=== PATIENT | male | born 1930 | race Caucasian/White ===

== ENCOUNTER 2016-09-22 15:31 | Emergency (ER) | payer OTHER, BC ==
[~2016-09-22] VITALS: Ht 177.8 cm; Wt 87.2 kg
[~2016-09-22 15:31] MED LIST: AMOX TR-K CLV1 EAC4 PO; Aspirin E.C. PO; BIOTIN2500 MCG PO; CILOSTAZOL100 MG PO; CLINDAMYCIN HC300 MG PO; CRESTOR10 MG PO; CRESTOR20 MG PO; CRESTOR40 MG PO; CYANOCOBALAM1000 MCG PO; DAILY MULTIPLE1 EACH PO; DIOVAN40 MG PO; DULOXETINE HCL60 MG PO; ENDOCET 5-3251 EACH PO; FUROSEMIDE20 MG PO; Flaxseed Oil PO; GABAPENTIN300 MG PO; GABAPENTIN600 MG PO; GLUCOPHAGE500 MG PO; Glucophage PO; KEFLEX500 MG PO; Keflex PO; LEVAQUIN750 MG PO; LO-DOSE ASPIRIN81 M1 PO; METFORMIN HCL500 MG PO; PROTONIX40 MG PO; PROVENTIL HFA6.7 GM IH; PROZAC20 MG PO; Protonix PO; Proventil,Ventolin H IH; QVAR 80 MCG IN7.3 GM IH; SPIRIVA1 INHALATI IH; THERAGRAN1 TABLET PO; TIZANIDINE HCL2 M1 PO; VALIUM2 MG PO; VIBRAMYCIN100 MG PO; VITAMIN B-12250 MC2 PO; VITAMIN D31000 UNI2 PO
[2016-09-22 17:13] VITALS: BP 134/76
== END 2016-09-22 17:15 | disposition home or self-care (01) ==
LOC: EME → EDBD 15:31 → EME 17:15
PROC: 0HQKXZZ Repair Right Lower Leg Skin, External Approach (ICD-10-PCS; principal; 2016-09-22)
DX: S81.811A Laceration without foreign body, right lower leg, initial encounter (principal); W25.XXXA Contact with sharp glass, initial encounter; I10 Essential (primary) hypertension; J44.9 Chronic obstructive pulmonary disease, unspecified; E78.5 Hyperlipidemia, unspecified; E11.9 Type 2 diabetes mellitus without complications; Z79.84 Long term (current) use of oral hypoglycemic drugs; K21.9 Gastro-esophageal reflux disease without esophagitis; F32.9 Major depressive disorder, single episode, unspecified; Z85.46 Personal history of malignant neoplasm of prostate; Z87.891 Personal history of nicotine dependence
CPT/HCPCS: 99281; 99284

== ENCOUNTER 2016-11-22 15:51 | Inpatient (IN) | payer OTHER, BC ==
[~2016-11-22] VITALS: Ht 177.8 cm; Wt 91.4 kg
[2016-11-22 17:57] LABS: HEMATOCRIT 34.7 % (38.0-50.0); MCHC 32.6 G/DL (30.0-36.0); MCV 95.1 FL (86-99); MEAN PLAT.VOLUME 9.1 uM^3 (9.0-12.4); PLATELET COUNT 132 K/uL (156-360); RBC DIS.WIDTH-CV 14.2 % (11.8-14.6); RBC DIS.WIDTH-SD 49.4 % (39-53); RED BLOOD COUNT 3.65 M/uL (4.00-5.50); WHITE BLOOD COUNT 14.9 K/uL (4.1-10.2)
[2016-11-22 18:06] LABS: CHLORIDE 100 mEq/L (99-109); POTASSIUM 4.8 mEq/L (3.7-5.4); SODIUM 136 mEq/L (136-147)
[2016-11-22 18:08] LABS: GLUCOSE 192 mg/dL (70-99)
[2016-11-22 18:10] LABS: ANION GAP 11 MEQ/L (2-14); TOTAL BILIRUBIN 0.7 mg/dL (0.0-1.0)
[2016-11-22 18:12] LABS: ALKALINE PHOSPHATASE 48 IU/L (3-129); GFR ESTIMATE (CALCULATED) 38 mL/min/
[2016-11-22 18:13] LABS: UREA NITROGEN (BUN) 32 mg/dL (9-23)
[2016-11-22 18:15] LABS: CREATINE KINASE 402 IU/L (1-294)
[2016-11-22 18:18] LABS: TROP-I INTERPRETATION NEGATIVE; TROPONIN-I 0.03 ng/mL (0.0-0.30)
[2016-11-22 22:15] VITALS: BP 98/57
[2016-11-22 23:29] LABS: ADD MIUA? YES; BILIRUBIN NEGATIVE; BLOOD SMALL; COLOR YELLOW ((YELLOW)); GLUCOSE (STRIP) NEGATIVE; KETONES NEGATIVE; LEUKOCYTES NEGATIVE; NITRITE NEGATIVE; PROTEIN (STRIP) NEGATIVE; SPECIFIC GRAVITY 1.013 (1.000-1.030)
[2016-11-22 23:45] LABS: BACTERIA NONE SEEN /HPF; EPITHELIAL CELLS NONE SEEN /HPF; MUCUS TRACE /LPF; RED BLOOD CELLS TNTC /HPF (0-5); UCUL ADDED? YES; WHITE BLOOD CELLS 0-5 /HPF (0-5)
[2016-11-22 23:56] VITALS: BP 101/57
[2016-11-23 00:20] LABS: POINT-OF-CARE METER ID UU13113717
[2016-11-23 01:30] LABS: TROP-I INTERPRETATION NEGATIVE; TROPONIN-I 0.02 ng/mL (0.0-0.30)
[2016-11-23 03:11] LABS: POINT-OF-CARE METER ID UU13113717
[2016-11-23 03:46] VITALS: BP 102/59
[2016-11-23 06:33] LABS: HEMATOCRIT 31.2 % (38.0-50.0); MCH 30.5 PG (29.0-34.0); MCHC 31.7 G/DL (30.0-36.0); MEAN PLAT.VOLUME 10.1 uM^3 (9.0-12.4); PLATELET COUNT 116 K/uL (156-360); RBC DIS.WIDTH-CV 14.5 % (11.8-14.6); RED BLOOD COUNT 3.25 M/uL (4.00-5.50); WHITE BLOOD COUNT 10.3 K/uL (4.1-10.2)
[2016-11-23 06:53] LABS: ALKALINE PHOSPHATASE 39 IU/L (3-129); ANION GAP 7 MEQ/L (2-14); CHLORIDE 108 MEQ/L (99-109); CREATINE KINASE 205 IU/L (1-294); GFR ESTIMATE (CALCULATED) 47 mL/min/; GLUCOSE 127 mg/dL (70-99); POTASSIUM 4.3 MEQ/L (3.7-5.4); SAMPLE HEMOLYSIS CHECK 0; SAMPLE ICTERIC CHECK 0; SAMPLE LIPEMIA CHECK 0; SODIUM 140 MEQ/L (136-147); TOTAL BILIRUBIN 0.5 MG/DL (0.0-1.0); TOTAL CK 205 IU/L (1-294); UREA NITROGEN (BUN) 26 mg/dL (9-23)
[2016-11-23 06:58] LABS: TROP-I INTERPRETATION NEGATIVE; TROPONIN-I 0.03 ng/mL (0.0-0.30)
[2016-11-23 07:20] LABS: EOSINOPHIL (%) 0.7 % (0-5); EOSINOPHIL COUNT 0.1 K/uL (0-0.3); IMMATURE GRANULOCYTE (%) 0.4 % (0.0-0.7); INSTRUMENT ABS NEUTROPHIL CT 8.2 K/uL; LYMPHOCYTE COUNT 1.3 K/uL (1.0-2.8); MONOCYTE (%) 6.5 % (3-12); MONOCYTE COUNT 0.7 K/uL (0-0.8); NEUTROPHIL (%) 79.7 % (45-76); NEUTROPHIL COUNT 8.2 K/uL (1.8-6.4)
[2016-11-23 07:28] LABS: CK-MB 1.5 ng/mL (0.0-4.9)
[2016-11-23 08:39] VITALS: BP 124/71
[2016-11-23 11:40] VITALS: BP 147/67
[2016-11-23 12:29] LABS: POINT-OF-CARE METER ID UU13113717
[2016-11-23 15:59] VITALS: BP 120/59
[2016-11-23 19:27] VITALS: BP 120/67
[2016-11-24] VITALS (7 sets, daily range): BP systolic 122–147; BP diastolic 66–73
[2016-11-24 04:11] LABS: POINT-OF-CARE METER ID UU14174225
[2016-11-24 06:01] LABS: MCH 31.8 PG (29.0-34.0); MCHC 33.2 G/DL (30.0-36.0); MCV 95.7 FL (86-99); MEAN PLAT.VOLUME 10.5 uM^3 (9.0-12.4); PLATELET COUNT 124 K/uL (156-360); RBC DIS.WIDTH-CV 14.5 % (11.8-14.6); RBC DIS.WIDTH-SD 50.4 % (39-53); RED BLOOD COUNT 3.24 M/uL (4.00-5.50); WHITE BLOOD COUNT 9.5 K/uL (4.1-10.2)
[2016-11-24 06:27] LABS: ALKALINE PHOSPHATASE 53 IU/L (3-129); ANION GAP 9 MEQ/L (2-14); CHLORIDE 107 MEQ/L (99-109); GFR ESTIMATE (CALCULATED) 47 mL/min/; POTASSIUM 4.1 MEQ/L (3.7-5.4); SAMPLE HEMOLYSIS CHECK 0; SAMPLE ICTERIC CHECK 0; SAMPLE LIPEMIA CHECK 0; SODIUM 137 MEQ/L (136-147); TOTAL BILIRUBIN 0.5 MG/DL (0.0-1.0); UREA NITROGEN (BUN) 24 mg/dL (9-23)
[2016-11-24 06:35] LABS: GLUCOSE 201 mg/dL (70-99)
[2016-11-24 18:03] LABS: POINT-OF-CARE METER ID UU13113717
[2016-11-24 21:39] LABS: POINT-OF-CARE METER ID UU13113717
[2016-11-25 03:26] VITALS: BP 119/59
[2016-11-25 06:01] LABS: HEMATOCRIT 30.6 % (38.0-50.0); MCH 30.3 PG (29.0-34.0); MCHC 32.4 G/DL (30.0-36.0); MCV 93.6 FL (86-99); MEAN PLAT.VOLUME 9.9 uM^3 (9.0-12.4); PLATELET COUNT 132 K/uL (156-360); RBC DIS.WIDTH-SD 47.5 % (39-53); RED BLOOD COUNT 3.27 M/uL (4.00-5.50); WHITE BLOOD COUNT 7.3 K/uL (4.1-10.2)
[2016-11-25 06:40] LABS: ALKALINE PHOSPHATASE 62 IU/L (3-129); ANION GAP 9 MEQ/L (2-14); CHLORIDE 105 MEQ/L (99-109); GFR ESTIMATE (CALCULATED) 56 mL/min/; GLUCOSE 158 mg/dL (70-99); POTASSIUM 4.4 MEQ/L (3.7-5.4); SAMPLE HEMOLYSIS CHECK 0; SAMPLE ICTERIC CHECK 0; SAMPLE LIPEMIA CHECK 0; SODIUM 138 MEQ/L (136-147); UREA NITROGEN (BUN) 19 mg/dL (9-23)
[2016-11-25 07:30] VITALS: BP 120/58
[2016-11-25 07:36] LABS: POINT-OF-CARE METER ID UU14188625
[2016-11-25] MEDS ORDERED: CEFTIN500 MG PO (08:40)
== END 2016-11-25 11:10 | disposition home health service (06) | DRG 872 ==
LOC: EME 15:51 → 5SOUTH 20:55 → EDOF 20:55 → ENRESERV 20:59 → 5SOUTH 22:09 → ENPENDDIS 11-25 → 5SOUTH 11-25 11:10
PROVIDERS: Internal Medicine; Physician Assistant
DX: A41.9 Sepsis, unspecified organism (principal); N17.9 Acute kidney failure, unspecified; M62.82 Rhabdomyolysis; E11.40 Type 2 diabetes mellitus with diabetic neuropathy, unspecified; E11.621 Type 2 diabetes mellitus with foot ulcer; L97.519 Non-pressure chronic ulcer of other part of right foot with unspecified severity; E11.628 Type 2 diabetes mellitus with other skin complications; L03.115 Cellulitis of right lower limb; I95.1 Orthostatic hypotension; I25.10 Atherosclerotic heart disease of native coronary artery without angina pectoris; Z95.5 Presence of coronary angioplasty implant and graft; K21.9 Gastro-esophageal reflux disease without esophagitis; J44.9 Chronic obstructive pulmonary disease, unspecified; E78.00 Pure hypercholesterolemia, unspecified; Z87.891 Personal history of nicotine dependence; Z82.49 Family history of ischemic heart disease and other diseases of the circulatory system; E86.0 Dehydration; Z85.46 Personal history of malignant neoplasm of prostate; T67.5XXA Heat exhaustion, unspecified, initial encounter; S09.90XA Unspecified injury of head, initial encounter; W06.XXXA Fall from bed, initial encounter; Y92.013 Bedroom of single-family (private) house as the place of occurrence of the external cause; Z82.3 Family history of stroke; E78.5 Hyperlipidemia, unspecified; Z79.84 Long term (current) use of oral hypoglycemic drugs; R55 Syncope and collapse
CPT/HCPCS: 70450; 71020; 73630; 80053; 81003; 82550; 82553; 82948; 83605; 84484; 85025; 85027; 87040; 87070; 87075; 87086; 87205; 93005; 93880; 93971; 94640; 94640 76; 99281; 99285; J0692; J0696; J1644; J1815; J3370; J7030; J7050

== ENCOUNTER 2016-12-10 14:41 | Inpatient (IN) | payer OTHER, BC ==
[~2016-12-10] VITALS: Ht 152.4 cm; Wt 90.3 kg
[~2016-12-10 14:41] MED LIST changes: +CEFTIN500 MG PO
[2016-12-10 15:47] LABS: EOSINOPHIL (%) 0.1 % (0-5); HEMATOCRIT 32.7 % (38.0-50.0); IMMATURE GRANULOCYTE (%) 0.6 % (0.0-0.7); IMMATURE GRANULOCYTE COUNT 0.1 K/uL; INSTRUMENT ABS NEUTROPHIL CT 7.7 K/uL; LYMPHOCYTE COUNT 1.3 K/uL (1.0-2.8); MCH 30.5 PG (29.0-34.0); MCHC 32.4 G/DL (30.0-36.0); MONOCYTE (%) 14.9 % (3-12); MONOCYTE COUNT 1.6 K/uL (0-0.8); NEUTROPHIL (%) 71.9 % (45-76); NEUTROPHIL COUNT 7.7 K/uL (1.8-6.4); RBC DIS.WIDTH-CV 14.2 % (11.8-14.6); RBC DIS.WIDTH-SD 48.6 % (39-53); RED BLOOD COUNT 3.48 M/uL (4.00-5.50); WHITE BLOOD COUNT 10.7 K/uL (4.1-10.2)
[2016-12-10 15:48] LABS: PLATELET COUNT 167 K/uL (156-360)
[2016-12-10 15:57] LABS: CHLORIDE 100 mEq/L (99-109); POTASSIUM 4.5 mEq/L (3.7-5.4); SODIUM 133 mEq/L (136-147)
[2016-12-10 15:59] LABS: GLUCOSE 242 mg/dL (70-99)
[2016-12-10 16:00] LABS: ANION GAP 9 MEQ/L (2-14)
[2016-12-10 16:03] LABS: GFR ESTIMATE (CALCULATED) 47 mL/min/; UREA NITROGEN (BUN) 23 mg/dL (9-23)
[2016-12-10 16:05] LABS: URIC ACID 4.3 mg/dL (3.1-9.2)
[2016-12-10 16:53] LABS: POINT-OF-CARE METER ID UU13113702; POINT-OF-CARE USER ID NUTJNM
[2016-12-10] MEDS ORDERED: SERTRALINE HCL50 MG PO (17:24)
[2016-12-10] MEDS ORDERED: GABAPENTIN300 MG PO ×2 (17:24)
[2016-12-10] MEDS ORDERED: FISH OIL 1,0001 EAC7 PO (17:25)
[2016-12-10 19:55] VITALS: BP 140/81
[2016-12-10 22:20] LABS: POINT-OF-CARE METER ID UU14117124
[2016-12-10 23:58] VITALS: BP 124/67
[2016-12-11 00:50] LABS: POINT-OF-CARE METER ID UU14117124
[2016-12-11 03:45] VITALS: BP 106/57
[2016-12-11 06:04] LABS: HEMATOCRIT 31.8 % (38.0-50.0); MCH 30.7 PG (29.0-34.0); MCHC 32.7 G/DL (30.0-36.0); MCV 93.8 FL (86-99); MEAN PLAT.VOLUME 9.7 uM^3 (9.0-12.4); PLATELET COUNT 177 K/uL (156-360); RBC DIS.WIDTH-CV 14.3 % (11.8-14.6); RED BLOOD COUNT 3.39 M/uL (4.00-5.50); WHITE BLOOD COUNT 9.3 K/uL (4.1-10.2)
[2016-12-11 06:32] LABS: ALKALINE PHOSPHATASE 54 IU/L (3-129); ANION GAP 8 MEQ/L (2-14); CHLORIDE 104 MEQ/L (99-109); GFR ESTIMATE (CALCULATED) 56 mL/min/; GLUCOSE 153 mg/dL (70-99); POTASSIUM 4.5 MEQ/L (3.7-5.4); SAMPLE HEMOLYSIS CHECK 0; SAMPLE ICTERIC CHECK 0; SAMPLE LIPEMIA CHECK 0; SODIUM 137 MEQ/L (136-147); UREA NITROGEN (BUN) 21 mg/dL (9-23)
[2016-12-11 06:41] LABS: TOTAL BILIRUBIN 0.7 MG/DL (0.0-1.0)
[2016-12-11 07:18] VITALS: BP 113/69
[2016-12-11 11:08] LABS: POINT-OF-CARE METER ID UU14188577
[2016-12-11 15:10] VITALS: BP 101/55
[2016-12-11 15:59] LABS: POINT-OF-CARE METER ID UU14117124
[2016-12-11 21:35] LABS: POINT-OF-CARE METER ID UU14188577
[2016-12-11 23:09] VITALS: BP 100/65
[2016-12-12 04:12] VITALS: BP 94/53
[2016-12-12 06:35] LABS: POINT-OF-CARE METER ID UU14208753
[2016-12-12 06:44] LABS: HEMATOCRIT 29.9 % (38.0-50.0); MCH 30.9 PG (29.0-34.0); MCHC 32.8 G/DL (30.0-36.0); MCV 94.3 FL (86-99); PLATELET COUNT 166 K/uL (156-360); RBC DIS.WIDTH-CV 14.1 % (11.8-14.6); RBC DIS.WIDTH-SD 48.9 % (39-53); RED BLOOD COUNT 3.17 M/uL (4.00-5.50); WHITE BLOOD COUNT 8.7 K/uL (4.1-10.2)
[2016-12-12 07:11] LABS: ALKALINE PHOSPHATASE 61 IU/L (3-129); ANION GAP 8 MEQ/L (2-14); CHLORIDE 101 MEQ/L (99-109); GFR ESTIMATE (CALCULATED) 44 mL/min/; GLUCOSE 167 mg/dL (70-99); POTASSIUM 4.5 MEQ/L (3.7-5.4); SAMPLE HEMOLYSIS CHECK 0; SAMPLE ICTERIC CHECK 0; SAMPLE LIPEMIA CHECK 0; SODIUM 135 MEQ/L (136-147); TOTAL BILIRUBIN 0.7 MG/DL (0.0-1.0); UREA NITROGEN (BUN) 22 mg/dL (9-23)
[2016-12-12 08:02] VITALS: BP 106/60
[2016-12-12 12:31] LABS: ADD MIUA? YES; BILIRUBIN NEGATIVE; BLOOD SMALL; COLOR YELLOW ((YELLOW)); GLUCOSE (STRIP) NEGATIVE; KETONES NEGATIVE; LEUKOCYTES NEGATIVE; NITRITE NEGATIVE; PROTEIN (STRIP) 30; SPECIFIC GRAVITY 1.019 (1.000-1.030)
[2016-12-12 12:44] LABS: BACTERIA NONE SEEN /HPF; EPITHELIAL CELLS NONE SEEN /HPF; MUCUS NONE SEEN /LPF; WHITE BLOOD CELLS 0-5 /HPF (0-5)
[2016-12-12 16:26] VITALS: BP 106/59
[2016-12-12 18:33] LABS: POINT-OF-CARE METER ID UU13113675; POINT-OF-CARE USER ID ADMKMM76
[2016-12-12 19:53] VITALS: BP 105/66
[2016-12-12 23:26] VITALS: BP 131/78
[2016-12-13 04:28] VITALS: BP 100/61
[2016-12-13 06:17] LABS: POINT-OF-CARE METER ID UU14117124
[2016-12-13 06:17] LABS: HEMATOCRIT 30.5 % (38.0-50.0); MCH 30.1 PG (29.0-34.0); MCHC 31.8 G/DL (30.0-36.0); MCV 94.7 FL (86-99); MEAN PLAT.VOLUME 10.2 uM^3 (9.0-12.4); PLATELET COUNT 153 K/uL (156-360); RBC DIS.WIDTH-CV 13.8 % (11.8-14.6); RBC DIS.WIDTH-SD 47.9 % (39-53); RED BLOOD COUNT 3.22 M/uL (4.00-5.50); WHITE BLOOD COUNT 7.5 K/uL (4.1-10.2)
[2016-12-13 07:12] LABS: ALKALINE PHOSPHATASE 60 IU/L (3-129); ANION GAP 9 MEQ/L (2-14); CHLORIDE 105 MEQ/L (99-109); GFR ESTIMATE (CALCULATED) 51 mL/min/; GLUCOSE 139 mg/dL (70-99); POTASSIUM 4.7 MEQ/L (3.7-5.4); SAMPLE HEMOLYSIS CHECK 1; SAMPLE ICTERIC CHECK 0; SAMPLE LIPEMIA CHECK 0; SODIUM 135 MEQ/L (136-147); TOTAL BILIRUBIN 0.8 MG/DL (0.0-1.0); UREA NITROGEN (BUN) 21 mg/dL (9-23)
[2016-12-13 07:40] VITALS: BP 94/62
[2016-12-13 11:37] VITALS: BP 109/63
[2016-12-13 11:56] LABS: POINT-OF-CARE METER ID UU14188577
[2016-12-13 16:11] VITALS: BP 98/64
[2016-12-13 16:16] LABS: POINT-OF-CARE METER ID UU14188577
[2016-12-13 18:18] LABS: ADD MIUA? YES; BILIRUBIN NEGATIVE; BLOOD SMALL; COLOR YELLOW ((YELLOW)); GLUCOSE (STRIP) NEGATIVE; KETONES NEGATIVE; LEUKOCYTES NEGATIVE; NITRITE NEGATIVE; PROTEIN (STRIP) NEGATIVE; SPECIFIC GRAVITY 1.015 (1.000-1.030)
[2016-12-13 18:22] LABS: BACTERIA NONE SEEN /HPF; EPITHELIAL CELLS NONE SEEN /HPF; MUCUS TRACE /LPF; RED BLOOD CELLS 0-5 /HPF (0-5); WHITE BLOOD CELLS NONE SEEN /HPF (0-5)
[2016-12-13 23:36] VITALS: BP 142/75
[2016-12-14 06:49] LABS: HEMATOCRIT 30.2 % (38.0-50.0); MCHC 31.8 G/DL (30.0-36.0); MCV 94.4 FL (86-99); MEAN PLAT.VOLUME 9.8 uM^3 (9.0-12.4); PLATELET COUNT 172 K/uL (156-360); RBC DIS.WIDTH-CV 13.8 % (11.8-14.6); RBC DIS.WIDTH-SD 47.8 % (39-53); WHITE BLOOD COUNT 8.5 K/uL (4.1-10.2)
[2016-12-14 07:43] VITALS: BP 141/76
[2016-12-14 07:50] LABS: ALKALINE PHOSPHATASE 81 IU/L (3-129); ANION GAP 8 MEQ/L (2-14); CHLORIDE 102 MEQ/L (99-109); GFR ESTIMATE (CALCULATED) 56 mL/min/; GLUCOSE 164 mg/dL (70-99); POTASSIUM 4.1 MEQ/L (3.7-5.4); SAMPLE HEMOLYSIS CHECK 0; SAMPLE ICTERIC CHECK 0; SAMPLE LIPEMIA CHECK 0; SODIUM 135 MEQ/L (136-147); TOTAL BILIRUBIN 0.7 MG/DL (0.0-1.0); UREA NITROGEN (BUN) 22 mg/dL (9-23)
[2016-12-14 11:12] LABS: POINT-OF-CARE METER ID UU14188577
[2016-12-14 15:51] VITALS: BP 133/65
[2016-12-14 16:44] LABS: POINT-OF-CARE METER ID UU14188577
[2016-12-14 21:48] LABS: POINT-OF-CARE METER ID UU14117124
[2016-12-14 23:57] VITALS: BP 138/68
[2016-12-15 06:39] LABS: POINT-OF-CARE METER ID UU14188577
[2016-12-15 07:11] LABS: ANION GAP 12 MEQ/L (2-14); C-REACTIVE PROTEIN 125.4 MG/L (0-10); CHLORIDE 102 MEQ/L (99-109); GFR ESTIMATE (CALCULATED) > 59 mL/min/; GLUCOSE 136 mg/dL (70-99); POTASSIUM 4.2 MEQ/L (3.7-5.4); SAMPLE HEMOLYSIS CHECK 0; SAMPLE ICTERIC CHECK 0; SAMPLE LIPEMIA CHECK 0; SODIUM 137 MEQ/L (136-147); TOTAL BILIRUBIN 0.7 MG/DL (0.0-1.0); UREA NITROGEN (BUN) 20 mg/dL (9-23)
[2016-12-15 07:14] LABS: ALKALINE PHOSPHATASE 104 IU/L (3-129)
[2016-12-15 07:57] VITALS: BP 140/63
[2016-12-15 12:08] LABS: POINT-OF-CARE METER ID UU14188577
[2016-12-15 16:41] LABS: POINT-OF-CARE METER ID UU14208753
[2016-12-15 17:12] VITALS: BP 117/65
[2016-12-15 22:12] LABS: POINT-OF-CARE METER ID UU14117124
[2016-12-15 23:35] VITALS: BP 137/71
[2016-12-16 06:52] LABS: POINT-OF-CARE METER ID UU14188577
[2016-12-16 07:18] VITALS: BP 137/70
[2016-12-16 09:35] LABS: HEMATOCRIT 30.2 % (38.0-50.0); MCH 30.2 PG (29.0-34.0); MCHC 32.1 G/DL (30.0-36.0); MCV 94.1 FL (86-99); MEAN PLAT.VOLUME 9.7 uM^3 (9.0-12.4); PLATELET COUNT 202 K/uL (156-360); RBC DIS.WIDTH-CV 13.9 % (11.8-14.6); RBC DIS.WIDTH-SD 47.7 % (39-53); RED BLOOD COUNT 3.21 M/uL (4.00-5.50); WHITE BLOOD COUNT 7.6 K/uL (4.1-10.2)
[2016-12-16 09:58] LABS: ANION GAP 8 MEQ/L (2-14); CHLORIDE 103 MEQ/L (99-109); GFR ESTIMATE (CALCULATED) > 59 mL/min/; GLUCOSE 137 mg/dL (70-99); POTASSIUM 4.4 MEQ/L (3.7-5.4); SAMPLE HEMOLYSIS CHECK 0; SAMPLE ICTERIC CHECK 0; SAMPLE LIPEMIA CHECK 0; SODIUM 135 MEQ/L (136-147); UREA NITROGEN (BUN) 23 mg/dL (9-23)
[2016-12-16 11:37] LABS: POINT-OF-CARE METER ID UU14117124
[2016-12-16 16:24] VITALS: BP 153/76
[2016-12-16 17:01] LABS: POINT-OF-CARE METER ID UU14208753
[2016-12-16 21:35] LABS: POINT-OF-CARE METER ID UU14188577
[2016-12-16 23:48] VITALS: BP 127/81
[2016-12-17 06:21] LABS: POINT-OF-CARE METER ID UU14208753
[2016-12-17 07:13] VITALS: BP 135/65
[2016-12-17 11:21] LABS: POINT-OF-CARE METER ID UU14208753
[2016-12-17 15:43] VITALS: BP 164/79
[2016-12-17 22:12] LABS: POINT-OF-CARE METER ID UU14208753
[2016-12-18 00:15] VITALS: BP 132/69
[2016-12-18 02:16] LABS: HEMATOCRIT 30.4 % (38.0-50.0); MCH 30.2 PG (29.0-34.0); MCHC 32.2 G/DL (30.0-36.0); MCV 93.8 FL (86-99); MEAN PLAT.VOLUME 9.4 uM^3 (9.0-12.4); PLATELET COUNT 227 K/uL (156-360); RBC DIS.WIDTH-CV 13.9 % (11.8-14.6); RBC DIS.WIDTH-SD 47.1 % (39-53); RED BLOOD COUNT 3.24 M/uL (4.00-5.50); WHITE BLOOD COUNT 7.5 K/uL (4.1-10.2)
[2016-12-18 02:34] LABS: CHLORIDE 109 mEq/L (99-109); POTASSIUM 4.8 mEq/L (3.7-5.4)
[2016-12-18 02:35] LABS: SODIUM 142 mEq/L (136-147)
[2016-12-18 02:36] LABS: GLUCOSE 105 mg/dL (70-99)
[2016-12-18 02:37] LABS: ANION GAP 12 MEQ/L (2-14)
[2016-12-18 02:38] LABS: TOTAL BILIRUBIN 0.4 mg/dL (0.0-1.0)
[2016-12-18 02:39] LABS: ALKALINE PHOSPHATASE 102 IU/L (3-129)
[2016-12-18 02:40] LABS: GFR ESTIMATE (CALCULATED) 51 mL/min/
[2016-12-18 02:41] LABS: UREA NITROGEN (BUN) 23 mg/dL (9-23)
[2016-12-18 07:00] LABS: POINT-OF-CARE METER ID UU14208753
[2016-12-18 08:25] VITALS: BP 142/70
[2016-12-18] MEDS ORDERED: CYCLOBENZAPRINE5 MG PO (11:08)
[2016-12-18] MEDS ORDERED: TRAMADOL HCL50 MG PO (11:09)
[2016-12-18] MEDS ORDERED: NAPROSYN250 MG PO (11:09)
[2016-12-18] MEDS ORDERED: VANCOMYCIN HCL1 GM IV (11:22)
[2016-12-18 11:59] LABS: POINT-OF-CARE METER ID UU14117124
== END 2016-12-18 13:30 | DRG 623 ==
LOC: EME 14:41 → EDOF 17:47 → 3EAST 17:47 → ENRESERV 17:50 → 3EAST 19:30
PROVIDERS: Emergency Medicine; Internal Medicine; Podiatrist Foot & Ankle Surgery
PROC: 0JBQ0ZZ Excision of Right Foot Subcutaneous Tissue and Fascia, Open Approach (ICD-10-PCS; principal; 2016-12-12)
PROC: 02HV33Z Insertion of Infusion Device into Superior Vena Cava, Percutaneous Approach (ICD-10-PCS; 2016-12-14)
DX: E11.621 Type 2 diabetes mellitus with foot ulcer (principal); L97.512 Non-pressure chronic ulcer of other part of right foot with fat layer exposed; E11.52 Type 2 diabetes mellitus with diabetic peripheral angiopathy with gangrene; E11.51 Type 2 diabetes mellitus with diabetic peripheral angiopathy without gangrene; L03.115 Cellulitis of right lower limb; L02.611 Cutaneous abscess of right foot; I25.10 Atherosclerotic heart disease of native coronary artery without angina pectoris; I12.9 Hypertensive chronic kidney disease with stage 1 through stage 4 chronic kidney disease, or unspecified chronic kidney disease; G47.33 Obstructive sleep apnea (adult) (pediatric); J44.9 Chronic obstructive pulmonary disease, unspecified; K21.9 Gastro-esophageal reflux disease without esophagitis; F32.9 Major depressive disorder, single episode, unspecified; E11.22 Type 2 diabetes mellitus with diabetic chronic kidney disease; E11.42 Type 2 diabetes mellitus with diabetic polyneuropathy; M54.5 Low back pain; M16.11 Unilateral primary osteoarthritis, right hip; M48.06 Spinal stenosis, lumbar region; M46.96 Unspecified inflammatory spondylopathy, lumbar region; K59.00 Constipation, unspecified; E78.5 Hyperlipidemia, unspecified; B95.1 Streptococcus, group B, as the cause of diseases classified elsewhere; A49.02 Methicillin resistant Staphylococcus aureus infection, unspecified site; Z68.28 Body mass index [BMI] 28.0-28.9, adult; Z85.46 Personal history of malignant neoplasm of prostate; Z87.891 Personal history of nicotine dependence; Z95.5 Presence of coronary angioplasty implant and graft; Z82.49 Family history of ischemic heart disease and other diseases of the circulatory system; N18.3 Chronic kidney disease, stage 3 (moderate)
CPT/HCPCS: 71010; 72148; 73502; 73720; 73721; 74000; 80048; 80053; 80061; 80202; 81003; 82948; 83036; 83605; 84550; 85025; 85027; 85651; 86140; 87040; 87070; 87075; 87077; 87147; 87186; 87205; 88305; 93925; 94640; 94640 76; 97530 GO; 99202; 99281; 99285; J1170; J1650; J1815; J1885; J2543; J3010; J3370; J7030; J7040; J7050; S0020

== ENCOUNTER 2017-01-04 16:26 | Inpatient (IN) | payer OTHER, BC ==
[~2017-01-04] VITALS: Ht 177.8 cm; Wt 87.2 kg
[~2017-01-04 16:26] MED LIST changes: +CYCLOBENZAPRINE5 MG PO; +FISH OIL 1,0001 EAC7 PO; +NAPROSYN250 MG PO; +SERTRALINE HCL50 MG PO; +TRAMADOL HCL50 MG PO; +VANCOMYCIN HCL1 GM IV
[2017-01-04 16:48] LABS: INTER. NORMALIZED RATIO 1.2; PROTHROMBIN TIME 13.1 SEC (10.2-12.9)
[2017-01-04 16:51] LABS: PTT 30.2 SEC (25-37)
[2017-01-04 16:52] LABS: AMYLASE 45 IU/L (1-118)
[2017-01-04 17:00] LABS: LIPASE 20 U/L (1.0-51.0)
[2017-01-04 17:04] LABS: TROP-I INTERPRETATION NEGATIVE; TROPONIN-I < 0.01 ng/mL (0.0-0.30)
[2017-01-04] MEDS ORDERED: VITAMIN D31000 UNI2 PO (17:54)
[2017-01-04] MEDS ORDERED: VITAMIN B-12250 MC2 PO (17:55)
[2017-01-04] MEDS ORDERED: INCRUSE ELLI62.5 MCG IH (17:57)
[2017-01-04] MEDS ORDERED: PRILOSEC20 MG PO (17:58)
[2017-01-04] MEDS ORDERED: SANTYL30 GM TP (17:59)
[2017-01-04] MEDS ORDERED: CRESTOR10 MG PO (17:59)
[2017-01-04] MEDS ORDERED: TYLENOL REGULA325 MG PO (18:03)
[2017-01-04] MEDS ORDERED: MILK OF MAGN PO (18:04)
[2017-01-04] MEDS ORDERED: DULCOLAX10 MG PR (18:04)
[2017-01-04] MEDS ORDERED: MIRALAX17 GM PO (18:05)
[2017-01-04 18:29] LABS: HEMATOCRIT 34.6 % (38.0-50.0); MCHC 32.1 G/DL (30.0-36.0); MCV 93.5 FL (86-99); MEAN PLAT.VOLUME 10.5 uM^3 (9.0-12.4); PLATELET COUNT 166 K/uL (156-360); RBC DIS.WIDTH-CV 14.1 % (11.8-14.6); RBC DIS.WIDTH-SD 47.8 % (39-53); WHITE BLOOD COUNT 5.3 K/uL (4.1-10.2)
[2017-01-04 18:33] LABS: CHLORIDE 107 mEq/L (99-109); POTASSIUM 4.6 mEq/L (3.7-5.4); SODIUM 141 mEq/L (136-147)
[2017-01-04 18:36] LABS: GLUCOSE 108 mg/dL (70-99)
[2017-01-04 18:37] LABS: ANION GAP 14 MEQ/L (2-14)
[2017-01-04 18:38] LABS: TOTAL BILIRUBIN 0.3 mg/dL (0.0-1.0)
[2017-01-04 18:39] LABS: ALKALINE PHOSPHATASE 63 IU/L (3-129); GFR ESTIMATE (CALCULATED) > 59 mL/min/
[2017-01-04 18:40] LABS: UREA NITROGEN (BUN) 23 mg/dL (9-23)
[2017-01-04 20:59] LABS: HDL CHOLESTEROL 37 MG/DL (Desirable>=40); LDL CHOLESTEROL 35 mg/dL (Desirable<100); NON-HDL CHOLESTEROL 73 mg/dL (Desirable<160); TOTAL CHOLESTEROL 110 mg/dL (Desirable<200); TRIGLYCERIDES 191 MG/DL (Normal: <150)
[2017-01-04 22:02] VITALS: BP 177/88
[2017-01-04 23:20] LABS: POINT-OF-CARE METER ID UU14188625
[2017-01-04 23:57] VITALS: BP 190/86
[2017-01-05 03:25] VITALS: BP 127/66
[2017-01-05 04:03] LABS: HEMATOCRIT 31.7 % (38.0-50.0); MCH 29.8 PG (29.0-34.0); MCHC 32.5 G/DL (30.0-36.0); MCV 91.6 FL (86-99); MEAN PLAT.VOLUME 9.3 uM^3 (9.0-12.4); PLATELET COUNT 169 K/uL (156-360); RBC DIS.WIDTH-SD 47.5 % (39-53); RED BLOOD COUNT 3.46 M/uL (4.00-5.50); WHITE BLOOD COUNT 9.5 K/uL (4.1-10.2)
[2017-01-05 07:34] LABS: POINT-OF-CARE METER ID UU14188625
[2017-01-05 07:38] VITALS: BP 120/73
[2017-01-05 11:16] VITALS: BP 127/72
[2017-01-05 11:21] LABS: POINT-OF-CARE METER ID UU14188625
[2017-01-05 12:35] LABS: Estimated Average Glucose 148 mg/dL (70-123); HEMOGLOBIN A1c (GLYCOHEMOGLOB) 6.8 % HGB (Below 5.7)
[2017-01-05 15:30] VITALS: BP 142/81
[2017-01-05 16:41] LABS: POINT-OF-CARE METER ID UU14188625
[2017-01-05 20:00] VITALS: BP 168/74
[2017-01-06] VITALS (7 sets, daily range): BP systolic 128–187; BP diastolic 63–94
[2017-01-06 07:23] LABS: POINT-OF-CARE METER ID UU14188625
[2017-01-06 10:41] LABS: HEMATOCRIT 32.9 % (38.0-50.0); MCH 29.3 PG (29.0-34.0); MCHC 31.3 G/DL (30.0-36.0); MCV 93.5 FL (86-99); MEAN PLAT.VOLUME 9.3 uM^3 (9.0-12.4); PLATELET COUNT 171 K/uL (156-360); RBC DIS.WIDTH-CV 14.3 % (11.8-14.6); RBC DIS.WIDTH-SD 48.6 % (39-53); RED BLOOD COUNT 3.52 M/uL (4.00-5.50); WHITE BLOOD COUNT 5.3 K/uL (4.1-10.2)
[2017-01-06 11:07] LABS: ANION GAP 10 MEQ/L (2-14); CHLORIDE 104 MEQ/L (99-109); GFR ESTIMATE (CALCULATED) 56 mL/min/; GLUCOSE 198 mg/dL (70-99); POTASSIUM 4.1 MEQ/L (3.7-5.4); SAMPLE HEMOLYSIS CHECK 0; SAMPLE ICTERIC CHECK 0; SAMPLE LIPEMIA CHECK 0; SODIUM 138 MEQ/L (136-147); UREA NITROGEN (BUN) 27 mg/dL (9-23)
[2017-01-06 11:18] LABS: POINT-OF-CARE METER ID UU14188625
[2017-01-06 21:06] LABS: POINT-OF-CARE METER ID UU14188625
[2017-01-07 01:00] VITALS: BP 140/74
[2017-01-07 04:00] VITALS: BP 122/67
[2017-01-07 07:54] LABS: POINT-OF-CARE METER ID UU14188625
[2017-01-07 08:02] VITALS: BP 113/69
[2017-01-07 12:11] LABS: POINT-OF-CARE METER ID UU13113717
[2017-01-07] MEDS ORDERED: ASPIR-LOW81 MG PO (12:24)
== END 2017-01-07 16:21 | DRG 69 ==
LOC: EME → EDBD 16:26 → EME 16:26 → EDOF 19:44 → ENRESERV 19:46 → EDOF 20:35 → 5SOUTH 20:35 → ENRESERV 20:42 → 5SOUTH 21:39
PROVIDERS: Emergency Medicine; Hospitalist; Internal Medicine
DX: G45.9 Transient cerebral ischemic attack, unspecified (principal); L97.411 Non-pressure chronic ulcer of right heel and midfoot limited to breakdown of skin; L02.611 Cutaneous abscess of right foot; F33.9 Major depressive disorder, recurrent, unspecified; L03.115 Cellulitis of right lower limb; E78.5 Hyperlipidemia, unspecified; K21.9 Gastro-esophageal reflux disease without esophagitis; I25.10 Atherosclerotic heart disease of native coronary artery without angina pectoris; E11.51 Type 2 diabetes mellitus with diabetic peripheral angiopathy without gangrene; D64.9 Anemia, unspecified; E11.42 Type 2 diabetes mellitus with diabetic polyneuropathy; E11.65 Type 2 diabetes mellitus with hyperglycemia; E11.621 Type 2 diabetes mellitus with foot ulcer; B95.1 Streptococcus, group B, as the cause of diseases classified elsewhere; B95.62 Methicillin resistant Staphylococcus aureus infection as the cause of diseases classified elsewhere; R27.8 Other lack of coordination; I10 Essential (primary) hypertension; J44.9 Chronic obstructive pulmonary disease, unspecified; I87.2 Venous insufficiency (chronic) (peripheral); E66.9 Obesity, unspecified; K42.9 Umbilical hernia without obstruction or gangrene; G25.2 Other specified forms of tremor; Z68.27 Body mass index [BMI] 27.0-27.9, adult; Z79.82 Long term (current) use of aspirin; Z79.84 Long term (current) use of oral hypoglycemic drugs; Z95.5 Presence of coronary angioplasty implant and graft; Z87.891 Personal history of nicotine dependence; Z85.46 Personal history of malignant neoplasm of prostate; Z82.5 Family history of asthma and other chronic lower respiratory diseases; Z82.49 Family history of ischemic heart disease and other diseases of the circulatory system; Z82.3 Family history of stroke; Z80.9 Family history of malignant neoplasm, unspecified
CPT/HCPCS: 70450; 70496; 70498; 70551; 80048; 80053; 80061; 82150; 82948; 83036; 83605; 83690; 84484; 85027; 85610; 85730; 87040; 92523 GN; 93005; 94640; 94640 76; 99202; 99281; 99285; J1644; J1815; J3370